=== PATIENT | female | born 1990 | race Caucasian/White ===

== ENCOUNTER 2016-10-14 11:46 | Emergency (ER) | payer OTHER ==
[~2016-10-14] VITALS: Ht 167.6 cm; Wt 71.2 kg
[~2016-10-14 11:46] MED LIST: ELIMITE60 GM TOP; FAMOTIDINE PO; FLAGYL PO; MINI PRENATAL1 EACH PO; MOTRIN PO; NO MEDICATIONS; NYSTATIN-TRIAMC15 G1 TP; PRENATAL1 TA1 PO
[2016-10-14 12:59] LABS: URINE SOURCE CLEAN CATCH
[2016-10-14 13:20] LABS: URINE APPEARANCE TURBID; URINE BLOOD 2+ (NEG); URINE COLOR DK YELLOW; URINE GLUCOSE NEG (NEG); URINE KETONE NEG (NEG); URINE LEUKOCYTE ESTERASE 1+ (NEG); URINE NITRATE NEG (NEG); URINE PROTEIN 1+ (NEG); URINE SPECIFIC GRAVITY 1.033 (1.003-1.035)
[2016-10-14 13:23] LABS: CULTURE INDICATED? YES; URINE BACTERIA AUWI 4+ (NEGATIVE); URINE SQUAMOUS EPITHELIAL CELL MANY /[HPF]; UWBCS1 AUWI 50-100 (0-5)
[2016-10-14 13:40] LABS: U HYALINE CASTS AUWI 0-2 /[LPF]; URINE BILIRUBIN NEG (NEG)
[2016-10-19 01:42] LABS: CHLAMYDIA TRACH Not Detected (Not Detected); N GONOR Not Detected (Not Detected)
== END 2016-10-14 15:08 | disposition home or self-care (01) ==
LOC: CFTX 11:46 → CED 11:46 → CFTX 13:10
PROVIDERS: Nurse Practitioner
DX: O23.43 Unspecified infection of urinary tract in pregnancy, third trimester (principal); O99.333 Smoking (tobacco) complicating pregnancy, third trimester; F17.200 Nicotine dependence, unspecified, uncomplicated; Z20.2 Contact with and (suspected) exposure to infections with a predominantly sexual mode of transmission; Z79.899 Other long term (current) drug therapy
CPT/HCPCS: 81003; 84703; 87086; 87491; 87591; 87808; 87905; 96372; 99284; J0696